=== PATIENT | male | born 1970 | race Caucasian/White ===

== ENCOUNTER 2016-04-22 08:36 | Outpatient (CLI) | payer OTHER | END 2016-04-22 08:37 | LOC: NAVSJIPCSP 08:36 | PROVIDERS: ATTEND Internal Medicine | DX: E78.5 Hyperlipidemia, unspecified (principal) | CPT/HCPCS: 36415; 80061 ==

== ENCOUNTER 2016-07-21 10:23 | Outpatient (CLI) | payer OTHER ==
[2016-07-21 11:24] LABS: Cardiac Risk 4.3 (Less than 4.5)
== END 2016-07-21 10:24 | disposition home or self-care (01) ==
LOC: NAVSJIPCSP 10:23 → NAV LAB 10:24
PROVIDERS: ATTEND Internal Medicine
DX: E78.5 Hyperlipidemia, unspecified (principal)
CPT/HCPCS: 36415; 80061

== ENCOUNTER 2016-11-19 09:27 | Outpatient (CLI) | payer OTHER ==
[2016-11-19 12:56] LABS: Cardiac Risk 4.3 (Less than 4.5)
== END 2016-11-19 09:28 | disposition home or self-care (01) ==
LOC: NAVSJIPCSP 09:27
PROVIDERS: ATTEND Internal Medicine
DX: E78.5 Hyperlipidemia, unspecified (principal)
CPT/HCPCS: 36415; 80061